=== PATIENT | female | born 1945 | race Caucasian/White ===

== ENCOUNTER 2025-03-21 17:05 | Inpatient (IN) | payer MEDICARE, OTHER ==
[~2025-03-21] VITALS: Ht 157.5 cm; Wt 56.7 kg
[2025-03-21] MEDS: MIRTAZAPINE 15 MG TABLET PO SCH
[2025-03-21] MEDS: QUETIAPINE FUMARATE 100 MG TABLET PO SCH
[2025-03-21 18:14] LABS: PLATELET COUNT (AUTO) 155 K/uL (150-450); RED BLOOD CELL COUNT(AUTO) 4.47 MIL/uL (4.0-5.2); RED CELL DISTRIBUTION WIDTH 13.5 % (11.5-15.0); WHITE BLOOD COUNT (AUTO) 5.0 K/uL (4.3-11.0)
[2025-03-21 18:21] LABS: CALCIUM, SERUM 9.3 mg/dL (8.5-10.1); CREATININE 0.9 mg/dL (0.6-1.3); SODIUM SERUM 140.0 mmol/L (136-145); UREA NITROGEN, BLOOD 16.0 mg/dL (7-18)
[2025-03-21 18:32] LABS: INR 1.0 (0.91-1.10)
[2025-03-21] MEDS ORDERED: KETOROLAC TROMETHAMINE INJ 30 MG/ML VIAL ONE (18:55)
[2025-03-21] MEDS ORDERED: ROSU5TAB13 PO (18:57)
[2025-03-21] MEDS ORDERED: MAGN400O6 PO (18:57)
[2025-03-21] MEDS ORDERED: PANT40TA49 PO (18:57)
[2025-03-21] MEDS ORDERED: QUET50TA PO (18:57)
[2025-03-21] MEDS ORDERED: BACL10TA PO (18:57)
[2025-03-21] MEDS ORDERED: FLUT16SP BNOSTRILS (18:57)
[2025-03-21] MEDS ORDERED: BISA10SU11 RC (18:57)
[2025-03-21] MEDS ORDERED: IBUP-1955 PO (18:57)
[2025-03-21] MEDS ORDERED: ACET325T53 PO (18:57)
[2025-03-21] MEDS ORDERED: MULT-213 PO (18:57)
[2025-03-21] MEDS ORDERED: ACET-73 PO (18:57)
[2025-03-21] MEDS ORDERED: TIOT18CA3 IH (18:57)
[2025-03-21] MEDS ORDERED: QUET200T PO (18:57)
[2025-03-21] MEDS ORDERED: NA P133E RC (18:57)
[2025-03-21] MEDS ORDERED: MIRT7.5T10 PO (18:57)
[2025-03-21] MEDS ORDERED: TRAM50TA2 PO (18:57)
[2025-03-21] MEDS ORDERED: SENN-261 PO (18:57)
[2025-03-21] MEDS: KETOROLAC TROMETHAMINE INJ 30 MG/ML VIAL IV ONE (18:59)
[2025-03-21] MEDS ORDERED: MORPHINE SULFATE INJ 2 MG/ML DISP.SYRIN IV PRN (19:30)
[2025-03-21] MEDS ORDERED: ONDANSETRON HCL/PF 4 MG/2 ML VIAL IVP PRN (19:30)
[2025-03-21] MEDS ORDERED: Z GUARD REMEDY 4 OZ OINT TP PRN (19:30)
[2025-03-21] MEDS ORDERED: MAG HYDROX/AL HYDROX/SIMETH 30 ML UDC PO PRN (19:30)
[2025-03-21] MEDS ORDERED: MAGNESIUM HYDROXIDE 30 ML UDC PO PRN (19:30)
[2025-03-21] MEDS ORDERED: FLUTICASONE PROPIONATE 16 GM BOTTLE NS PRN (20:00)
[2025-03-21] MEDS ORDERED: BISACODYL SUPP (10 MG) 10 MG/SUPP.RECT SUPP.RECT RC PRN (20:00)
[2025-03-21] MEDS: IV D5/ 0.9% NACL 1,000 ML IV SCH (21:08)
[2025-03-21 23:43] VITALS: BP 148/81; TEMP 97.9; O2SAT 97
[2025-03-22] MEDS: ATORVASTATIN 10 MG TABLET PO SCH
[2025-03-22 04:00] VITALS: BP 121/85; TEMP 97.7; O2SAT 96
[2025-03-22 06:23] LABS: PLATELET COUNT (AUTO) 153 K/uL (150-450); RED BLOOD CELL COUNT(AUTO) 4.59 MIL/uL (4.0-5.2); RED CELL DISTRIBUTION WIDTH 13.5 % (11.5-15.0); WHITE BLOOD COUNT (AUTO) 4.7 K/uL (4.3-11.0)
[2025-03-22 06:34] LABS: ASPARTATE AMINOTRANSFERASE 25.0 U/L (15-37); TOTAL PROTEIN, SERUM 6.9 g/dL (6.4-8.2)
[2025-03-22 06:39] LABS: CALCIUM, SERUM 8.9 mg/dL (8.5-10.1); CREATININE 0.8 mg/dL (0.6-1.3); INR 0.98 (0.91-1.10); PHOSPHORUS 2.7 mg/dL (2.5-4.9); SODIUM SERUM 141.0 mmol/L (136-145); UREA NITROGEN, BLOOD 14.0 mg/dL (7-18)
[2025-03-22 06:52] LABS: LDL 58.0 mg/dL (0-99)
[2025-03-22] MEDS: MULTIVIT W/MINERALS 1 TAB TABLET PO SCH (08:27)
[2025-03-22] MEDS: SENNOSIDES 8.6 MG TABLET PO SCH (08:27)
[2025-03-22] MEDS: QUETIAPINE FUMARATE 25 MG TABLET PO SCH (08:27)
[2025-03-22] MEDS: PANTOPRAZOLE 40 MG VIAL IV SCH (08:27)
[2025-03-22] MEDS ORDERED: FENTANYL PF 100MCG/2ML AMPUL ONE (08:54)
[2025-03-22] MEDS ORDERED: BUPIVACAINE 0.25% 75 MG/30 ML VIAL ONE ×2 (08:55→09:06)
[2025-03-22] MEDS ORDERED: ROCURONIUM BROMIDE 50 MG/5 ML ONE (08:55)
[2025-03-22] MEDS ORDERED: SUGAMMADEX SODIUM 200 MG/2 ML VIAL IV ONE (08:55)
[2025-03-22] MEDS ORDERED: TIOTROPIUM BROMIDE 6 CAP/BOX CAP.W.DEV IH SCH (09:00)
[2025-03-22] MEDS: IV D5/ 0.9% NACL 1,000 ML IV PRN (11:55)
[2025-03-22 12:00] VITALS: BP 146/88; TEMP 98.1; O2SAT 93
[2025-03-22] MEDS: ANCEF 1 GM/50 ML D5W IV SCH (17:08)
[2025-03-22] MEDS: ACETAMINOPHEN 325 MG TABLET PO PRN (18:14)
[2025-03-22 20:00] VITALS: BP 111/57; TEMP 97.9; O2SAT 96
[2025-03-22] MEDS: IPRATROPIUM NEB FS 0.5 MG/2.5 ML AMPUL.NEB NEB SCH (20:08)
[2025-03-22 20:10] VITALS: O2SAT 98
[2025-03-22 20:22] VITALS: O2SAT 100
[2025-03-23] VITALS (11 sets, daily range): BP systolic 132–140; BP diastolic 62–95; TEMP 97.5–98; O2SAT 96–100
[2025-03-23 06:18] LABS: PLATELET COUNT (AUTO) 150 K/uL (150-450); RED BLOOD CELL COUNT(AUTO) 4.16 MIL/uL (4.0-5.2); RED CELL DISTRIBUTION WIDTH 13.6 % (11.5-15.0); WHITE BLOOD COUNT (AUTO) 6.0 K/uL (4.3-11.0)
[2025-03-23 06:33] LABS: CALCIUM, SERUM 8.9 mg/dL (8.5-10.1); CREATININE 0.8 mg/dL (0.6-1.3); PHOSPHORUS 2.4 mg/dL (2.5-4.9); SODIUM SERUM 144.0 mmol/L (136-145); UREA NITROGEN, BLOOD 10.0 mg/dL (7-18)
[2025-03-23] MEDS: PANTOPRAZOLE 40 MG/PACK PACK PO SCH (08:36)
[2025-03-23] MEDS ORDERED: APIX2.5T PO (11:16)
[2025-03-23] MEDS: ENOXAPARIN SODIUM 40 MG/0.4 ML DISP.SYRIN SQ SCH (11:40)
[2025-03-23] MEDS: NEUTRA PHOS 1 POWD.PACKET PO ONE (16:41)
[2025-03-24] VITALS (8 sets, daily range): BP systolic 153; BP diastolic 54; TEMP 97.5–97.6; O2SAT 96–99
[2025-03-24 07:10] LABS: PLATELET COUNT (AUTO) 149 K/uL (150-450); RED BLOOD CELL COUNT(AUTO) 4.26 MIL/uL (4.0-5.2); RED CELL DISTRIBUTION WIDTH 13.3 % (11.5-15.0); WHITE BLOOD COUNT (AUTO) 4.7 K/uL (4.3-11.0)
[2025-03-24 07:29] LABS: CALCIUM, SERUM 8.9 mg/dL (8.5-10.1); CREATININE 0.5 mg/dL (0.6-1.3); PHOSPHORUS 3.0 mg/dL (2.5-4.9); SODIUM SERUM 135.0 mmol/L (136-145); UREA NITROGEN, BLOOD 6.0 mg/dL (7-18)
[2025-03-24] MEDS: POTASSIUM CHLORIDE 20 MEQ TAB.PRT.SR PO ONE (08:34)
== END 2025-03-24 15:29 | DRG 481 ==
LOC: ER 17:05 → MEDSG1 22:33
PROVIDERS: ATTEND Nurse Practitioner Acute Care
PROC: 0QS634Z Reposition Right Upper Femur with Internal Fixation Device, Percutaneous Approach (ICD-10-PCS; principal; 2025-03-21)
DX: S72.011A Unspecified intracapsular fracture of right femur, initial encounter for closed fracture (principal); F01.53 Vascular dementia, unspecified severity, with mood disturbance; G93.49 Other encephalopathy; Y92.129 Unspecified place in nursing home as the place of occurrence of the external cause; J44.9 Chronic obstructive pulmonary disease, unspecified; F31.9 Bipolar disorder, unspecified; W18.30XA Fall on same level, unspecified, initial encounter; K21.9 Gastro-esophageal reflux disease without esophagitis; E11.9 Type 2 diabetes mellitus without complications; E78.5 Hyperlipidemia, unspecified; I10 Essential (primary) hypertension; Z88.5 Allergy status to narcotic agent; Z88.1 Allergy status to other antibiotic agents; Z79.51 Long term (current) use of inhaled steroids; Z79.899 Other long term (current) drug therapy; Z79.01 Long term (current) use of anticoagulants
CPT/HCPCS: 36415; 71045-TC; 73502; 73700-TC; 80048-TC; 80061-TC; 80076-TC; 83735-TC; 84100-TC; 84443-TC; 85025-TC; 85027-TC; 85730-TC; 86850-TC; 87081-TC; 93307-TC; 94760-TC; 94799-TC; 97110-TC; 97116-TC; 97530-TC; 97535-TC; A4223; A6209; A6223; A6253; C1713; C1769; G0378; J0690; J1100; J1650; J1885; J2405; J2704; J2765; J3010; J3490; J7030; J7042; J7060